=== PATIENT | male | born 1955 | race Caucasian/White ===

== ENCOUNTER 2023-10-09 05:03 | Observation (INO) ==
--- NOTE | 2023-09-03 12:48 | PAT Medication Instructions ---
Medication Instructions Date of Service September 03, 2023 Home Medications gabapentin 300 mg tablet 900 mg PO HS ibuprofen 300 mg tablet 600 mg PO TID lisinopril 20 mg tablet 20 mg PO QAM terazosin 2 mg tablet 2 mg PO HS ASK your surgeon for instructions ibuprofen 300 mg tablet 600 mg PO TID DO NOT take the morning of surgery lisinopril 20 mg tablet 20 mg PO QAM Take evening before surgery gabapentin 300 mg tablet 900 mg PO HS terazosin 2 mg tablet 2 mg PO HS Other Notes If you have any questions please call us at [phone] or [phone] or [phone] or [phone]
--- NOTE | 2023-09-10 11:57 | Anesthesiology Consultation ---
Date of Service September 10, 2023 Assessment & Plan (1) Encounter for pre-operative examination: - will request myocardial perfusion scans from 07/15/23 stress test and [facility] cardiology and PCP 09/30/23 pre-operative office notes. - Outpatient joint assessment: Patient is currently scheduled for inpatient pathway. Patient is not recommended candidate for outpatient joint program from anesthesia standpoint based on available information if re-evaluated and patient/surgeon requests outpatient pathway could then elevated discussion to Dr. Arreola. Chart Review Chart Review: Pending: Refer to Additional Notes / Consult section and Patient seen in Pre Admission Testing Teaching & Discussion Pre-Anesthesia Teaching/Discussion Notes: Instructed NPO after midnight before surgery, except medications with 15 cc of water. Medication instructions provided according to the PAT guidelines. History Surgery Operation Date: 10/09/23 07:15 Proposed Procedures p Right Total Hip Replacement - Anterior Approach - Oli Lambert MD Height/Weight Height: 6 ft 2 in Weight: 135.4 kg Allergies Allergy/AdvReac Type Severity Reaction Status Date / Time No Known Allergies Allergy Verified 08/28/23 07:57 Medications Home Medications Medication Instructions Recorded Confirmed Last Taken gabapentin 300 mg tablet 900 mg PO HS 08/28/23 08/28/23 Unknown ibuprofen 300 mg tablet 600 mg PO TID 08/28/23 08/28/23 Unknown lisinopril 20 mg tablet 20 mg PO QAM 08/28/23 08/28/23 Unknown terazosin 2 mg tablet 2 mg PO HS 08/28/23 08/28/23 Unknown Past Medical History Medical History (Updated 09/10/23 @ 12:04 by Radha West PA-C) Chronic back pain Hypertension controlled, stable per pt Patient denies h/o stroke, seizures, heart attack, heart failure, DM, blood clots/DVTs or blood transfusions. Exercise / Class Metabolic Activity II 4-5 Yardwork/Stairs/Walk up hill (denies chest discomfort or shortness of breath with 1 FOS) Past Surgical History Surgical History (Updated 09/10/23 @ 12:05 by Radha West PA-C) History of colonoscopy Hx of elbow surgery lt Hx of neck surgery (~1994) cervical spinal fusion following industrial accident-mildly limited cervical extension Past Anesthesia History No Hx of Anesthesia Complications and No Family Hx of Anesthesia Complications History of PONV No Hx of PONV and No Hx of Motion Sickness Social History Smoking Status: Never smoker Do You Dip or Chew Tobacco: No Hx Alcohol Use: No Hx Substance Use: No substance use type: does not use Review of Systems Patient denies chest pain, shortness of breath, dyspnea on exertion, snoring, witnessed apneas, reflux, fever, chills, cough, wheezing, or palpitations. Physical Exam Vital Signs Vitals BP 134/81 P 71 TEMP 98.1 SP02 96% on RA RESP 17 Physical Patient resting comfortably in chair in no acute distress, alert and oriented, responding appropriately throughout visit Mildly limited cervical extension range of motion without pain TMD 3.5 finger breadths Mallampati Score 2 Dentition: intact, denies chipped or loose teeth, caps/crowns, implants or bridges Lungs: normal respiratory effort. Good air movement, clear throughout to auscultation, no adventitious breath sounds Cardiac: regular rate and rhythm, no murmurs noted Carotid arteries: negative bruit bilat Lab Results Anesthesia Preop Results Results Anesthesia Widget: WBC 9.66 K/ul (4.8-10.8) 09/10/23 Hgb 15.7 g/dl (14.0-18.0) 09/10/23 Hct 47.1 % (42.0-52.0) 09/10/23 Plt 239 K/uL (130-400) 09/10/23 Na 135 mmol/L (136-145) L 09/10/23 K 3.7 mmol/L (3.5-5.1) 09/10/23 Cl 101 mmol/L (98-107) 09/10/23 CO2 30 mmol/L (21-32) 09/10/23 BUN 13 mg/dl (6-23) 09/10/23 Creat 0.67 mg/dl (0.6-1.4) 09/10/23 Glucose Level 87 mg/dl (70-99(Fasting)) 09/10/23 PT 11.1 Seconds (9.0-12.0) 09/10/23 PTT 26 Seconds (21-31) 09/10/23 INR 1.0 (0.9-1.1) 09/10/23 Urine Color Dark Yellow 09/10/23 Urine Appearance Clear (Clear) 09/10/23 Urine pH 6.0 (4.5-7.5) 09/10/23 Urine Specific Gary 1.016 (1.000-1.030) 09/10/23 Urine Protein Negative (Negative) 09/10/23 Urine Glucose (UA) Negative (Negative) 09/10/23 Urine Ketones Negative (Negative) 09/10/23 Urine Blood Negative (Negative) 09/10/23 Urine Nitrite Negative (Negative) 09/10/23 Urine Bilirubin Negative (Negative) 09/10/23 Urine Urobilinogen Negative (Negative) 09/10/23 Urine Leukocyte Esterase Negative (Negative) 09/10/23 Blood Type AB Positive 09/10/23 Antibody Screen NEGATIVE 09/10/23 Testing Electrocardiogram Date: 09/10/23 NSR, rate 70 bpm Chest X-Ray Date: 09/10/23 No acute cardiopulmonary findings. Stress Test Date: 07/15/23 Pharmacologic MPHR not reported EKG at rest, sinus rhythm, poor R wave progression, PVCs Myocardial perfusion scans are pending
--- NOTE | 2023-10-06 10:24 | History & Physical Report ---
Date of Service October 06, 2023 Assessment & Plan (1) Degenerative joint disease of right hip: Plan: Right total hip replacement overnight stay for monitoring eventually home with home health using [facility] (2) Obesity, Class III, BMI 40-49.9 (morbid obesity): History of Present Illness Chief Complaint: Right hip pain Primary Care Provider: Moo Pearl Patient is a morbidly obese 67-year-old male with a long history of hip and spine disease. He has been evaluated by spine and his biggest problem seems to be his hip. He presents now with right hip and groin pain 7 out of 10. He requires a crutches or walker at all times in all activities of daily living. He is morbidly obese but has been able to lose 40 pounds in preparation for surgery. He has tried and failed intra-articular injections and has radiographic evidence of severe disease. Allergies Allergy/AdvReac Type Severity Reaction Status Date / Time No Known Allergies Allergy Verified 08/28/23 07:57 Home Medications Medication Instructions Recorded Confirmed Type gabapentin 300 mg tablet 900 mg PO HS 08/28/23 08/28/23 History ibuprofen 300 mg tablet 600 mg PO TID 08/28/23 08/28/23 History lisinopril 20 mg tablet 20 mg PO QAM 08/28/23 08/28/23 History terazosin 2 mg tablet 2 mg PO HS 08/28/23 08/28/23 History Past Med/Surg History Medical History Chronic back pain Hypertension controlled, stable per pt Surgical History History of colonoscopy Hx of elbow surgery lt Hx of neck surgery (~1994) cervical spinal fusion following industrial accident-mildly limited cervical extension Social History Smoking Status: Never smoker Second Hand Exposure: No; Do You Dip or Chew Tobacco: No; Hx Alcohol Use: No Hx Substance Use: No Preferred Language: Kyrgyz Communication Ability: Effective Steam Conditioner Filling Required: No Beliefs That Will Affect Care: None Current Living Situation: Spouse Feels Safe at Home: Yes Assistive Devices: Crutches and Glasses Review of Systems Review of Systems: Right hip and groin pain Physical Exam Physical Exam: Weight is 147 kg BMI 42 General: Obese male who appears to be his stated age. HEENT: NCAT, EOMI, PERRLA. Neck: Negative bruits Heart: Regular rate and rhythm no murmurs Lungs: Breath sounds clear and present in all laboy Abdomen: Obese soft nontender bowel sounds are positive Extremities: The right leg is 1 cm shorter than the left passive range of motion is 10 to 80 degrees flexion -15 degrees internal rotation all which reproduces groin pain. Neurological and vascular: Intact Results & Data Results & Data Vital Signs (Past 12 Hours) Blood pressure 128/82 Pulse 76
[2023-10-09] MEDS: LR 500ML BOLUS, THEN 15ML/HR IV SCH (06:09)
[2023-10-09] MEDS: LR 60ML/HR IV SCH (06:10)
[2023-10-09] MEDS: ACETAMINOPHEN 500 MG TAB PO SCH ×2 (06:10→13:54)
[2023-10-09] MEDS: CeleBREX 200 MG CAP PO SCH ×2 (06:10→21:01)
[2023-10-09] MEDS: GABAPENTIN 600 MG DOSE PO SCH (06:11)
[2023-10-09] MEDS: METOCLOPRAMIDE HCL 10 MG TABLET PO SCH (06:11)
[2023-10-09] MEDS: dexAMETHasone**PF** 10 MG/ML VIAL IV SCH (06:11)
[2023-10-09] MEDS: traMADol HCL 50 MG TABLET PO SCH (06:12)
[2023-10-09] MEDS ORDERED: BUPIVACAINE 0.5 % 5 MG/1 ML PF 10ML VIAL ONE (06:14)
--- NOTE | 2023-10-09 06:32 | History & Physical Bridge Note ---
Date of Service October 09, 2023 History & Physical Bridge Note I have examined the patient, reviewed the History & Physical and in the interval since the performance of the History & Physical I have noted the following changes of clinical significance: no changes noted
[2023-10-09] MEDS ORDERED: MIDAZOLAM HCL 1 MG/ML 2ML VIAL ONE (06:44)
[2023-10-09] MEDS ORDERED: fentaNYL citrate PF 100 MCG/2 ML VIAL ONE (06:44)
[2023-10-09] MEDS: TRANEXAMIC ACID 1,000 MG **IV Pre-op IV SCH (06:56)
[2023-10-09] MEDS ORDERED: ONDANSETRON INJ 2 MG/ML 2 ML VIAL IV PRN ×2 (07:12→12:33)
[2023-10-09] MEDS: ceFAZolin 3000MG 3,000 MG/72.5 ML BAG IV SCH (07:12)
[2023-10-09] MEDS ORDERED: ePHEDrine sulfate 50 MG/ML AMP IV PRN (07:12)
[2023-10-09] MEDS ORDERED: fentaNYL citrate PF 100 MCG/2 ML VIAL IV PRN (07:12)
[2023-10-09] MEDS ORDERED: ATROPINE SULFATE 0.1 MG/ML 10ML SYR IV PRN (07:12)
[2023-10-09] MEDS ORDERED: PROPOFOL IV EMULSION 10 MG/ML 20 ML VIAL IV ONE ×3 (07:27→08:06)
[2023-10-09] MEDS ORDERED: PHENYLEPHRINE 100MCG/ML 10ML SYR IV ONE (07:27)
[2023-10-09] MEDS: ORTHO JOINT ANESTHETIC ONE (07:49)
[2023-10-09] MEDS ORDERED: ONDANSETRON INJ 2 MG/ML 2 ML VIAL ONE (08:06)
[2023-10-09] MEDS ORDERED: PHENYLEPHRINE HCL 10 MG/ML VIAL ONE (08:06)
[2023-10-09] MEDS: ROPIV 0.5% 246mg, Ketorolac 30mg, EPINEPHrine 0.5mg in NSS INFIL SCH (08:18)
[2023-10-09] MEDS: TRANEXAMIC ACID 1,000 MG **IV Intra-op IV SCH (08:18)
[2023-10-09] MEDS ORDERED: KETOROLAC 30 MG/ML VIAL ONE (08:20)
--- NOTE | 2023-10-09 08:22 | Post Operative Brief Note ---
Immediate Post Op Note v1 Date of Surgery October 09, 2023 Pre & Post Diagnosis Operation Date: 10/09/23 07:15 Pre-Op Diagnosis: Right Hip Osteoarthritis Post-Op Diagnosis: Right Hip Osteoarthritis I identified the patient and participated in the time-out.: Yes Procedure Operation Date: 10/09/23 07:15 Actual Procedures p Right Total Hip Replacement - Anterior Approach(Right) - Oli Lambert MD Surgeon Oli Lambert MD Bulb Farmworker Julito Kwok PA-C Estimated Blood Loss 100 Findings Consistent with Post-Op Diagnosis Drains Hemovac Drain
[2023-10-09] MEDS ORDERED: HYDROmorphone INJ 2 MG/ML SYR/VIAL ONE (08:25)
--- NOTE | 2023-10-09 08:42 | Fluoroscopy Report ---
FL hip RT 1V CLINICAL HISTORY: RIGHT ANTERIOR HIPright hip arthroplasty COMPARISON STUDY: None FLUOROSCOPY TIME: 10.6 seconds FLUOROSCOPY IMAGES: 1 EXPOSURE DOSE: 3.47 mGy FINDINGS: Right hip arthroplasty demonstrates satisfactory alignment. No acute fracture. IMPRESSION: Fluoroscopic assistance as above. ACT 112: Negative or not required by law. Electronically signed by: Alfred Jalloh M.D. 10/09/2023 8:41 AM
--- NOTE | 2023-10-09 09:45 | Anesthesiology Progress Note ---
Date of Service October 09, 2023 Anesthesia Post Procedure Vital Signs Vital Signs: Temp Pulse Pulse Resp BP Pulse Ox O2 Del Method 10/09/23 09:42 82 16 117/77 96 Nasal Cannula 10/09/23 09:30 98.2 F 84 16 105/76 98 Nasal Cannula 10/09/23 09:20 85 14 130/74 95 Oxymask 10/09/23 09:10 82 15 115/82 98 Oxymask 10/09/23 09:00 87 14 121/88 96 Oxymask 10/09/23 08:50 97.3 F L 90 12 105/81 94 Oxymask 10/09/23 05:40 98.4 F 82 20 132/85 94 Room Air O2 Flow Rate 10/09/23 09:42 2 10/09/23 09:30 2 10/09/23 09:20 4 10/09/23 09:10 4 10/09/23 09:00 8 10/09/23 08:50 8 10/09/23 05:40 Pain Intensity Right Hip: Pain Intensity: 10 Transfer of Care Handoff Completed per policy Notes Mental Status: alert / awake / arousable and participated in evaluation Patient Amnestic to Procedure: Yes Nausea / Vomiting: adequately controlled Pain: adequately controlled Airway Patency, RR, SpO2: stable & adequate BP & HR: stable & adequate Hydration State: stable & adequate Neuraxial Anesthesia: was administered and sensory block is resolving Anesthetic Complications: no major complications apparent and Pt Satisfied with anesthetic care
[2023-10-09] MEDS ORDERED: MAGNESIUM HYDROXIDE SUSP 30 ML UDC PO PRN (12:33)
[2023-10-09] MEDS ORDERED: bisacodyL 10 MG SUPP PR PRN (12:33)
[2023-10-09] MEDS ORDERED: NALOXONE HCL 0.4 MG/1 ML VIAL/CARP IV PRN (12:33)
[2023-10-09] MEDS ORDERED: METOCLOPRAMIDE HCL INJ 5 MG/ML 2 ML VIAL IV PRN (12:33)
[2023-10-09] MEDS: SODIUM CHLORIDE 0.9% 1,000 ML IV SCH (12:43)
[2023-10-09] MEDS: MULTIVITAMIN TAB PO SCH (13:54)
[2023-10-09] MEDS: DOCUSATE SODIUM 100 MG CAP PO SCH (13:54)
[2023-10-09] MEDS: lisinopril 20 MG TAB PO SCH (13:54)
[2023-10-09] MEDS ORDERED: ACETAMINOPHEN 1000 MG PO SCH (14:00)
--- NOTE | 2023-10-09 14:06 | Operative Report ---
Post Operative Report Pre & Post Diagnosis Operation Date: 10/09/23 07:15 Pre-Op Diagnosis: Right Hip Osteoarthritis Morbid obesity BMI 42 Post-Op Diagnosis: Right Hip Osteoarthritis Same I identified the patient and participated in the time-out.: Yes Procedure Operation Date: 10/09/23 07:15 Actual Procedures p Right Total Hip Replacement - Anterior Approach(Right) - Oli Lambert MD Surgeon Oli Lambert MD Clinical Laboratory Scientist Julito Kwok PA-C Estimated Blood Loss 100 Findings Consistent with Post-Op Diagnosis Severe degenerative changes with chronically inflamed synovial lining Note: The patient had a morbidly obese body habitus. His BMI was 42. His size and obesity had an element of increased difficulty and increased time to the surgical procedure. Specimens Femoral head and bone and cartilage fragments Complications None Indications Components used: Ordaz & NephBrandizi anthology hip system: Acetabulum size 56 with 25 mm dome screw and Oreo Oxinium liner. Femur size 9 standard offset with +828 mm Oxinium inner dual mobility head. Description of Procedure Following satisfactory spinal anesthesia the patient was supine on the operating room table. The right leg was placed in the traction device in the left leg in the well-leg mckeon. Positioning was confirmed with fluoroscopy. The leg was prepared with ChloraPrep and draped sterilely. A surgical timeout was performed. An anterior approach was performed in the interval between the sartorius and tensor muscles. The patient's large body habitus added an element of increased difficulty and increased time to the surgical procedure. Hemostasis was obtained. The circumflex femoral vessels were identified and coagulated. An anterior capsulotomy was performed exposing the arthritic femoral neck and head. Fluoroscopy was used to confirm femoral neck resection level which was completed and the arthritic femoral head was removed. The acetabular self-retaining retractor was placed. Acetabular preparation was completed with excision of labral and a few small osteophytes. The acetabulum was then reamed under direct vision and a 56 shell was impacted into a healthy bed into a position of 35 to 40 degrees of abduction and 25 degrees of anteversion. A dome screw was placed followed by the Oreo liner. Small inferior osteophyte was removed. Local anesthetic was placed and the wound was irrigated. The femur was then placed into a position of external rotation extension and adduction exposure of the proximal femur was difficult because of the large abdomen. The femoral canal was identified and was prepared up to a size 9. A trial reduction with a standard offset neck and a +8 inner dual mobility head was performed. Fluoroscopy showed good fit and fill of the proximal canal, very good orientation of the components, and restorationist of leg length and offset at the level of the lesser trochanter. The hip was dislocated. The trial component removed. Local anesthetic was placed. The wound was irrigated and the final stem head complex of the same size was placed. The hip was reduced with fluoroscopy showing similar findings. The wound was irrigated with 500 cc of experience irrigation. There was some ge neralized oozing. A Hemovac drain was placed. The tensor fascia was closed with a running suture of 0 strata fix as well as the deeper subcutaneous fat layer. The most superficial layer was closed with a running subcuticular stitch of 3 oh strata fix. Dermabond Prineo and a negative pressure wound dressing was applied. The patient was returned to his bed in stable condition. Note: Julito JAEGER was present and assisted throughout due to the complicated nature of this case. He help with preparation and set up, he actuarial assistant throughout. He assisted with hemostasis and exposure throughout the entire procedure. He also closed the fascial subcutaneous and skin layers and applied the postop dressing. I attest to the content of the Intraoperative Record and any orders documented therein. Any exceptions are noted below.
[2023-10-09] MEDS: traMADol HCL 50 MG TABLET PO PRN (16:09)
[2023-10-09] MEDS: ceFAZolin 2000MG 2,000 MG/15 ML SYR IV SCH (16:10)
[2023-10-09] MEDS: TERAZOSIN HCL 1 MG CAP PO SCH (21:01)
[2023-10-09] MEDS: GABAPENTIN 300 MG CAP PO SCH (21:01)
[2023-10-09] MEDS: SENNA 8.6 MG TAB PO SCH (21:02)
[2023-10-10 06:36] LABS: Basophils # (auto) 0.04 K/uL (0.00-0.20); Basophils % (auto) 0.3 %; Eosinophils # (auto) 0.03 K/uL (0.00-0.50); Eosinophils % (auto) 0.2 %; Hematocrit (blood only) 37.5 % (42.0-52.0); Hemoglobin 12.4 g/dl (14.0-18.0); Immature Granulocytes # (auto) 0.09 K/uL (0.01-0.20); Immature Granulocytes % (auto) 0.6 %; Lymphocytes % (auto) 13.3 %; Mean Corpuscular Hemoglobin 32.6 pg (25.0-34.0); Mean Corpuscular Hgb Conc 33.1 g/dL (32.0-36.0); Mean Corpuscular Volume 98.7 fL (80.0-100.0); Mean Platelet Volume 10.5 fL (9.4-12.4); Monocytes # (auto) 1.23 K/uL (0.11-0.59); Monocytes % (auto) 8.6 %; Neutrophils # (auto) 11.01 K/uL (1.40-6.50); Platelet Count 223 K/uL (130-400); RDW Coefficient of Variation 14.6 % (11.5-14.5); RDW Standard Deviation 53.2 fL (36.4-46.3)
[2023-10-10 07:01] LABS: BUN Creatinine Ratio 18.1 (10-20); Calcium 8.3 mg/dl (8.6-10.3); Creatinine Clr Calc Pharmacy 148.6 ml/min; Est GFR (African American) 113.5 ml/min; Est GFR (Non-African American) 97.9 ml/min
[2023-10-10] MEDS ORDERED: oxyCODONE HCL IR 5 MG TAB (IMMEDIATE RELEASE) PO PRN ×2 (09:02)
--- NOTE | 2023-10-10 09:05 | Orthopedic Progress Note ---
Date of Service October 10, 2023 Assessment & Plan (1) Degenerative joint disease of right hip: Plan: Patient is stable today. He is having a little more pain than average but given his large body habitus and also the fact that he has significant spine disease this is not surprising. Today I feel that he is safe to go home. He will be followed at home by [facility]. We will add oxycodone instead of tramadol for pain relief. We went over his medication protocol hip precautions and wound dressing care. Will follow-up in the office in 2 weeks time. Hemovac will be discharged DC'd before discharge (2) Obesity, Class III, BMI 40-49.9 (morbid obesity): Admission and Anticipated Discharge Date Admission Date: October 09, 2023 Subjective Postoperative day #1 right total hip replacement Patient is having some groin pain especially with activities. He offers no other major complaints today. He has been up and ambulatory. Physical Exam Physical Exam: Patient is seated at the bedside. His sukhwinder dressing is clean dry and intact. His thigh and calf are soft and nontender. His hip is located. He is neurologically and vascularly intact. He does have groin pain with active flexion. Results & Data Vital Signs (Past 12 Hours) Vital Signs Temp Pulse Resp BP BP Pulse Ox O2 Del Method 10/10/23 07:42 36.4 C L 81 16 121/77 94 Room Air 10/10/23 05:29 122/81 10/10/23 02:40 36.4 C L 95 H 18 95/59 L 94/63 L 94 Room Air 10/09/23 23:22 36.8 C 79 16 118/72 94 Room Air Laboratory Results Laboratory values are stable hemoglobin is 12.7 sodium is 131
--- NOTE | 2023-10-10 13:04 | Discharge Summary ---
Date of Service October 10, 2023 Admission HPI Per Admitting Provider Patient is a morbidly obese 67-year-old male with a long history of hip and spine disease. He has been evaluated by spine and his biggest problem seems to be his hip. He presents now with right hip and groin pain 7 out of 10. He requires a crutches or walker at all times in all activities of daily living. He is morbidly obese but has been able to lose 40 pounds in preparation for surgery. He has tried and failed intra-articular injections and has radiographic evidence of severe disease. Admission Exam Per Admitting Provider Physical Exam: Weight is 147 kg BMI 42 General: Obese male who appears to be his stated age. HEENT: NCAT, EOMI, PERRLA. Neck: Negative bruits Heart: Regular rate and rhythm no murmurs Lungs: Breath sounds clear and present in all laboy Abdomen: Obese soft nontender bowel sounds are positive Extremities: The right leg is 1 cm shorter than the left passive range of motion is 10 to 80 degrees flexion -15 degrees internal rotation all which reproduces groin pain. Neurological and vascular: Intact Principal Diagnosis Right Hip Osteoarthritis Discharge Data Allergies Allergy/AdvReac Type Severity Reaction Status Date / Time No Known Allergies Allergy Verified 10/09/23 05:38 Procedures Performed Operation Date: 10/09/23 07:15 Actual Procedures p Right Total Hip Replacement - Anterior Approach(Right) - Oli Lambert MD Ordered Studies 10/09/23 07:15 FL hip RT 1V Routine Hospital Course (1) Degenerative joint disease of right hip: Patient: AGUSTÍN BAILON Admit Date: 10/09/23 MR#: [id number] Att Phy: Oli Lambert MD Acct ID: [id number] [facility] Phy: Moo Pearl M.D. Date: 1955 Fam Phy: Age: 67 Location: 3E Sex: M Room/Bed: [facility] cc: ~ *NOTICE TO RECEIVING REPUBLICAN/AGENCY This information is strictly Confidential and protected under [place] law. [place] law prohibits you from making any further disclosure of this information unless further disclosure is expressly permitted by the written consent of the person to whom it pertains or is authorized by law. A general authorization for the release of medical or other information is not sufficient for this purpose. Hospital accepts no responsibility if the information is made available to any other person, INCLUDING THE PATIENT. Date of Service October 10, 2023 Assessment & Plan (1) Degenerative joint disease of right hip: Plan: Patient is stable today. He is having a little more pain than average but given his large body habitus and also the fact that he has significant spine disease this is not surprising. Today I feel that he is safe to go home. He will be followed at home by [facility]. We will add oxycodone instead of tramadol for pain relief. We went over his medication protocol hip precautions and wound dressing care. Will follow-up in the office in 2 weeks time. Hemovac will be discharged DC'd before discharge (2) Obesity, Class III, BMI 40-49.9 (morbid obesity): Admission and Anticipated Discharge Date Admission Date: October 09, 2023 Subjective Postoperative day #1 right total hip replacement Patient is having some groin pain especially with activities. He offers no other major complaints today. He has been up and ambulatory. Physical Exam Physical Exam: Patient is seated at the bedside. His ashley dressing is clean dry and intact. His thigh and calf are soft and nontender. His hip is located. He is neurologically and vascularly intact. He does have groin pain with active flexion. Results & Data Vital Signs (Past 12 Hours) Vital Signs Temp Pulse Resp BP BP Pulse Ox O2 Del Method 10/10/23 07:42 36.4 C L 81 16 121/77 94 Room Air 10/10/23 05:29 122/81 10/10/23 02:40 36.4 C L 95 H 18 95/59 L 94/63 L 94 Room Air 10/09/23 23:22 36.8 C 79 16 118/72 94 Room Air Laboratory Results Laboratory values are stable hemoglobin is 12.7 sodium is 131 Signed By: <Electronically signed by Oli Lambert MD> 10/10/23 0905 Created: 10/10/23 0903 (2) Obesity, Class III, BMI 40-49.9 (morbid obesity): Total Time Total Time Spent Total Time Spent (In Minutes): 5 Discharge Plan Discharge Items Patient Disposition: Home - Home Health Services Reason For Visit: Right Hip Osteoarthritis Discharge Diagnosis: Right hip osteoarthritis Activity: Per Instructions section Weightbearing: Full weightbearing Non-emergency contact: Surgeon Call non-emergency contact if: you have any medication questions, your pain is not controlled, your temperature is above 101.5, your wound has increased redness and your wound has increased drainage Follow-up/Referrals: [facility] [Outside] (as per surgeon's office ) Oli Lambert MD [Surgeon] - ( follow-up with Dr. Lambert or his PA in 2 weeks from the day of surgery for your first postoperative visit) Moo Pearl M.D. [Primary Care Provider] - Diet: Regular Addtl Attending Provider Instructions: DR. FERNANDEZ POST-OP INSTRUCTIONS FOR TOTAL HIP ARTHROPLASTY PLEASE REVIEW PRIOR TO SURGERY Day of Surgery You will be admitted and meet the nursing and anesthesia team. Dr. Lambert will see you and sign your operative side. Anesthesia will place your spinal anesthetic in the pre-op area Your surgery will be performed and last approximately 1 2 hours. Upon waking, you will notice a dressing and ice pack on your hip. You will remain in the recovery room for 1 2 hours, then be transferred to your room in the ambulatory surgical area if you are to go home the same day as your surgery or transferred to the orthopedic floor if you will be staying overnight. Most of Dr. Fernandez total hip patients go home the same day as surgery. This depends on how well you feel. Patients generally seem to feel better in their own home environment, and the risk of exposure to bad bugs is much lower. (Your post-operative medications will be sent to your pharmacy approximately 1-2 days prior to your procedure) Day 1 post-op (if you have an overnight stay in the hospital) You will have bloodwork drawn in the morning Physical therapy will evaluate you in the morning. You will start getting out of bed and ambulating with a walker. They will instruct you on hip motion exercises. Use your cold packs as instructed. This will decrease swelling and minimize pain. inpatient services director will discuss your discharge plan. Discharge will generally be around 11am Day 1 post-op (all patients) You will be taking Aspirin 81mg twice for 4 weeks to decrease the risk of a blood clot. You will most likely have a drain and a ASHLEY (superficial wound VAC) dressing post-operatively. This will keep your incision dry as well as aid in early healing. The batteries will wear out and the VAC will lose suction around day 6 - 7 post-op. At that time, you may turn off the device and disconnect from the dressing. You must keep the dressing on until your first post- operative visit with Dr. Lambert. If the dressing appears to be saturated, please call our office. Day 2 14 post-op You will have a home nurse visit to assess your status and remove your drain on post-op day 2. You are permitted to shower immediately with the VAC. Do not soak the dressing let the shower flow on your opposite side, and pat dry the plastic. Once the dressing has been removed, you may shower normally with the incision exposed. Do not rub the area simply let soapy water run over the incision and lightly pat dry. Therapy will begin on post-op day 3. Your therapy prescription will be sent to your home therapy company/therapist You should continue doing your home exercises Week 2 post-op and forward You will have your first post-op appointment 2 weeks after surgery which should have been scheduled for you by our office. This appointment will be to check your incision, progression of therapy and pain control. Xrays will be taken to evaluate the prosthesis. You will continue to use a cane or a walker until you feel safe enough to stop using it. You will have a 6-week post-op appointment which should have been scheduled for you by our office. Xrays will be taken to evaluate the prosthesis. You will continue to advance range of motion. By 3 to 4 months after surgery, you should have almost full range of motion and may resume most activities. You may have some pain around the hip with certain activities this is completely normal. You will be scheduled for a 1 year post-op appointment to assess your outcome (sooner if Dr. Lambert feels necessary). Pain: The immediate post-op period after hip replacement surgery can be painful. However, the degree and frequency of the pain is generally much less than knee replacement surgery. You should take your pain medicine as you need it, especially prior to physical therapy and bedtime. Your pain will decrease and you may transition to a milder pain medicine (with less side effects, such as Tylenol) as soon as possible. It is common to have pain at night that interferes with sleep this can last for several months. Pain medicines can cause nausea and constipation do not take more than you need. You may be prescribed one or more of the following MEDICATIONS : 1. Celebrex this controls inflammation and makes pain medications mor effective it will be taken once or twice a day 2. Tylenol a pain medicine that can help to decrease your pain you should take 1000mg three times a day 3. Tramadol a pain medicine that can be taken every 4-6 hours (instead of Oxycodone) as needed to control your pain 4. Oxycodone a VERY strong pain medicine that can be taken every 4-6 hours (instead of Tramadol) as needed to control your pain. This medication has the most side effects and is usually not necessary for hip replacements. 5. Aspirin 81mg blood thinning medication to help minimize the risk of development of blood clots unfortunate side effects of pain medicine include nausea and constipation if you experience these issues or have any questions about your post-op medications, call [facility] at for assistance/advice on how to manage these issues Hip replacement surgery does not require a lot of aggressive physical therapy. Learning to walk safely and obeying hip precautions are most important. While in the hospital, you will be shown a series of home exercises you should perform these exercises 3 4 times daily in addition to physical therapy. After the completion of home therapy (approx.. 2 weeks), most therapy exercises can be done on your own. You should walk several times a day. Try not to be standing for more than an hour at a time during the first 4 weeks post-op as you may experience more swelling. If you develop swelling, you need to elevate your legs/feet at or above the level of your heart. You may progress from a walker to a cane to walking independently as you feel comfortable. Unless it is an emergency, YOUR ARE NOT PERMITTED TO HAVE ANY DENTAL CLEANING/WORK UNTIL 3 MONTHS AFTER SURGERY. You will be required to take an antibiotic prior to any dental cleaning or dental work in order to prevent your joint prothesis from getting infected. This medication is a one time per visit dose to be taken one hour prior to appointment. You may call our office for this prescription or your dentist may be willing to prescribe the medication. Remember to contact [facility] at if you develop any signs of infection which include increased swelling, pain, redness, drainage from incision, warmth, fever, chills or severe pain unrelieved by pain medication. If you develop any chest pain or shortness of breath, you should proceed immediately to the nearest Emergency Room. It is normal to run a low-grade fever after surgery. If your fever is consistent at 101.0 or higher, you will need to contact the office. Stand-Alone Forms: My [facility], Pain - Opioid Pain Management Medications and DC Order Prescriptions: New oxycodone 5 mg tablet 5 mg PO Q4H MDD 6 PRN (Reason: pain) Qty: 30 0RF Continued lisinopril 20 mg Tablet 20 mg PO QAM terazosin 2 mg Tablet 2 mg PO HS gabapentin 300 mg Tablet 900 mg PO HS Discontinued ibuprofen 300 mg Tablet 600 mg PO TID Admission Data Admit Date/Time: 10/09/23 08:27 Attending Provider: Oli Lambert Admit Provider: Oli Lambert Primary Care Provider: Moo Pearl Other Providers: [facility],Home Health Other Interventions: Discharge Summary Assessment (RN) Last Done: 10/10/23 10:55
== END 2023-10-10 12:48 | disposition home health service (06) ==
LOC: ASU 05:03 → 3E 05:03